=== PATIENT | male | born 1935 | race Caucasian/White ===

== ENCOUNTER 2017-01-23 11:11 | Emergency (ER) | payer OTHER, BC ==
[~2017-01-23] VITALS: Ht 177.8 cm; Wt 86.1 kg
[2017-01-23 12:11] LABS: HEMATOCRIT 44.7 % (38.0-50.0); MCH 29.5 PG (29.0-34.0); MCHC 33.3 G/DL (30.0-36.0); MCV 88.5 FL (86-99); MEAN PLAT.VOLUME 10.9 uM^3 (9.0-12.4); PLATELET COUNT 162 K/uL (156-360); RBC DIS.WIDTH-CV 12.7 % (11.8-14.6); RBC DIS.WIDTH-SD 41.2 % (39-53); RED BLOOD COUNT 5.05 M/uL (4.00-5.50); WHITE BLOOD COUNT 6.8 K/uL (4.1-10.2)
[2017-01-23 12:22] LABS: CHLORIDE 99 mEq/L (99-109); POTASSIUM 3.7 mEq/L (3.7-5.4); SODIUM 136 mEq/L (136-147)
[2017-01-23 12:23] LABS: GLUCOSE 148 mg/dL (70-99)
[2017-01-23 12:25] LABS: ANION GAP 8 MEQ/L (2-14)
[2017-01-23 12:27] LABS: GFR ESTIMATE (CALCULATED) 48 mL/min/
[2017-01-23 12:28] LABS: UREA NITROGEN (BUN) 23 mg/dL (9-23)
[2017-01-23 12:51] LABS: TROP-I INTERPRETATION NEGATIVE; TROPONIN-I < 0.01 ng/mL (0.0-0.30)
[2017-01-23 15:36] VITALS: BP 160/83
== END 2017-01-23 15:37 | disposition left against medical advice (07) ==
LOC: EME 11:11
DX: R07.9 Chest pain, unspecified (principal); R91.8 Other nonspecific abnormal finding of lung field; Z53.20 Procedure and treatment not carried out because of patient's decision for unspecified reasons; E78.5 Hyperlipidemia, unspecified; I10 Essential (primary) hypertension; Z87.891 Personal history of nicotine dependence
CPT/HCPCS: 71020; 71250; 80048; 84484; 85027; 93005; 99281; 99283